=== PATIENT | female | born 1990 | race Caucasian/White ===

== ENCOUNTER 2019-12-26 21:39 | Day surgery (SDC) | payer BC ==
[2019-12-26 22:13] VITALS: BP 115/76; TEMP 98.1; BMI 32.4
[2019-12-26] MEDS ORDERED: hydrALAZINE 20 MG/ML VIAL SLOW IVP PRN (22:27)
--- NOTE | 2019-12-26 22:37 | PDOC.EVN ---
Event Note - Event Note Event Note: ADDENDUM to H&P: States had Influenza A in Sep 2019...so I suspect this is simple rhinovirus vs other similar. Rec: hydration
--- NOTE | 2019-12-26 23:29 | HP ---
TIME: 2228 LOCATION: Labor and Delivery Triage CHIEF COMPLAINT: Decreased movement This is a patient of Ana Choudhury. HISTORY OF PRESENT ILLNESS: This is a 29-year-old, G1, P0, at 39 weeks and 1 day with an EDC of January 01, who presents with some decreased movement. She denies contractions, vaginal bleeding, or leakage of fluid. She denies any fevers. She denies any complications, although she does have a prior history of a gastric sleeve surgery done in the past. REVIEW OF SYSTEMS: Complete review of systems was covered and is otherwise negative unless specified in the HPI. PAST MEDICAL HISTORY: Negative. ALLERGIES: TO VICODIN. PAST SURGERIES: Include a gastric sleeve in 2010. OBSTETRICAL HISTORY: She is a G1, P0. PHYSICAL EXAMINATION: VITAL SIGNS: Her blood pressure is 115/76, pulse is 100, and temperature is 98.1. GENERAL: She is in no acute distress. ABDOMEN: Soft and nontender. PELVIC: On perineal inspection, there is no gross evidence of bleeding or ruptured membranes. Cervical exam was deferred as she was seen last Friday and was 2 cm by Ana Choudhury, and there is no current complaint of contractions. On external monitor, the heart tones have a normal baseline with moderate variability and there are accelerations. This meets criteria for a reactive strip. Tocodynamometer is without contraction pattern. ASSESSMENT: This is a 29-year-old, G1, who is at 39 weeks and 1 day (full term), who desires expectant management for this . She has a reactive nonstress test. PLAN: 1. Reassurance given. 2. The patient told to follow up tomorrow with Ana Choudhury or the other provider in the same office for continued care. 3. No evidence of distress or of labor at this time. Job ID: [id number]
== END 2019-12-26 22:47 | disposition home or self-care (01) ==
LOC: L&D/OP 21:39
PROVIDERS: ATTEND Obstetrics & Gynecology
DX: O36.8130 Decreased fetal movements, third trimester, not applicable or unspecified (principal); Z3A.39 39 weeks gestation of pregnancy

== ENCOUNTER 2020-01-05 10:28 | Inpatient (IN) | payer BC ==
[2020-01-05 11:08] VITALS: BMI 33.1
[2020-01-05] MEDS ORDERED: Lactated Ringer's 1,000 ML IV PRN (11:32)
[2020-01-05] MEDS ORDERED: Promethazine HCl 25 MG/ML VIAL IM PRN (11:32)
[2020-01-05] MEDS ORDERED: hydrALAZINE 20 MG/ML VIAL SLOW IVP PRN ×2 (11:32→18:09)
[2020-01-05] MEDS ORDERED: Lidocaine 1% (PF) 30 ML VIAL SC PRN (11:32)
[2020-01-05] MEDS ORDERED: NS / Oxytocin 40 units/1000ml 1,000 ML IV PRN (11:32)
[2020-01-05] MEDS ORDERED: Ondansetron PF 4 MG/2 ML Vial IVP PRN ×2 (11:32→18:09)
[2020-01-05 12:37] LABS: Hemoglobin 13.1 g/dL (12.0-16.0); Mean Corpuscular HGB CONC 34.8 g/dL (32.0-36.0); Mean Corpuscular Volume 97.8 fL (78.0-98.0); Platelet Count 238 thou/uL (130-400); RBC Distribution Width 12.1 % (11.5-14.5); Red Blood Cell (RBC) Count 3.85 mill/uL (4.20-5.40); White Blood Cell (WBC) Count 10.2 thou/uL (4.8-10.8)
[2020-01-05 13:16] LABS: HBSAg Index 0.28 S/CO (0-0.99); Hep B Surf Ag Non-Reactive S/CO (NonReactive)
[2020-01-05 13:16] LABS: Syphilis Antibody Nonreactive (Nonreactive); Syphilis Antibody Index 0.03 S/CO (<1.00 Non-Reactive)
--- NOTE | 2020-01-05 14:04 | PDOC.LDHP ---
Labor and Delivery H&P Chief complaint: loss of fluid HPI: patient reports loss of clear fluid at 0200 this am. She is having very irregular contractions. The fluid is clear. The baby is moving normally. Current gestational age (weeks): 40 Due date: 01/01/19 Dating criteria: last menstrual period Grav: 1 Current complications: none Abnormal US findings: No Current medications: pre- vitamins Previous surgical history: other (Gastric sleeve) Allergies/Adverse Reactions: Allergies Allergy/AdvReac Type Severity Reaction Status Date / Time hydrocodone [From Vicodin] Allergy Severe Verified 12/26/19 22:07 Social history: none - Physical Exam Vital signs reviewed and normal: yes General: breathing through contractions Heart: RRR Lungs: nonlabored breathing Extremeties: trace edema FHT: category 1 (FHTs 135 baseline. +Accels, Moderate variabilty, no decels.) - Vaginal Exam cm dilated: 3 Effacement: 50% Station: -3 - OB Labs Blood type: O RH: negative Antibody Screen: unknown HIV: negative RPR: negative HEPSAg: negative 1 hour GCT: negative GBS: negative Urine drug screen: negative Rubella: immune - Assessment L&D Assessment: term rupture in membranes - Plan Plan: admit to L&D, labor augmentation if indicated -: Low intervention protocol. Cervical exam when indicated by change in patients contractions pattern or status.
--- NOTE | 2020-01-05 18:02 | PDOC.OPDEL ---
OB Operative/Delivery Note Delivery Dr/Surgeon: Ofelia Choudhury Pre-Delivery Diagnosis: active labor Procedure/Post Delivery Dx: spontaneous vaginal delivery Weeks gestation: 40 Anesthesia: none - Findings A Sex: female - 1 min: 9 - 5 min: 9 - Additional Findings/Plan Placenta delivered: spontaneous Repaired Obstetrical Laceration: right labial (and left labial) findings: other Compilations/Other Findings: right and left labial. Post delivery plan: routine recovery
[2020-01-05] MEDS ORDERED: Bisacodyl 10 MG SUPP PR PRN (18:09)
[2020-01-05] MEDS ORDERED: Milk Of Magnesia 30 ML UDCUP PO PRN (18:09)
[2020-01-05] MEDS ORDERED: Lanolin Ointment 7 GM TUBE TOP PRN (18:09)
[2020-01-05] MEDS ORDERED: Benzocaine-Menthol 82.5 ML CAN TOP PRN (18:09)
[2020-01-05] MEDS ORDERED: traMADol HCl 50 MG TAB PO PRN (18:09)
[2020-01-05] MEDS ORDERED: Misoprostol 200 MCG TAB VAG PRN (18:09)
[2020-01-05] MEDS ORDERED: NS / Oxytocin 40 units/1000ml 1,000 ML IV SCH (18:15)
[2020-01-05] MEDS ORDERED: Ibuprofen 800 MG TAB PO SCH (18:16)
[2020-01-06] MEDS: Ibuprofen 800 MG TAB PO SCH ×4 (02:50→21:37)
[2020-01-06] MEDS: Docusate Calcium (SURFAK) 240 MG CAP PO SCH ×3 (02:50→21:37)
[2020-01-06] MEDS: Ferrous Sulfate 325 MG TAB PO SCH ×2 (08:54→17:25)
[2020-01-06] MEDS ORDERED: Adacel (T-DAP) 0.5 ML SYRINGE IM ONE (09:00)
[2020-01-06] MEDS: Prenatal Vitamin 1 TAB PO SCH (10:46)
[2020-01-06 22:39] VITALS: BP 118/70
[2020-01-07] MEDS: Ibuprofen 800 MG TAB PO SCH (06:55)
--- NOTE | 2020-01-07 08:30 | PDOC.PP ---
Post Progress Note Post Day #: 1 Subjective: ppd day one. struggling with breast feeding. Sore but manageblae PO intake tolerated: yes Flatus: yes Ambulation: yes Vital Signs (12 hours) Temp Pulse Resp BP Pulse Ox 01/06/20 21:42 98 F 77 18 118/70 98 Weight Weight 199 lb - Physical Examination General: NAD Respiratory: non-labored breathing Abdominal: lochia (minimal), no distention Extremities: negative homans (B) Skin: no rash Neurological: no gross focal deficits Psychiatric: A&Ox3, normal affect Result Diagrams: 01/05/20 12:18 Additional Labs: Post Labs Blood Type O NEGATIVE 01/05/20 12:43 Hep Bs Antigen Non-Reactive S/CO (NonReactive) 01/05/20 12:18 - Assessment/Plan A: g1 now p1 sp P: nml exam.
[2020-01-07 08:36] VITALS: TEMP 97.6
[2020-01-07] MEDS: Prenatal Vitamin 1 TAB PO SCH (08:40)
[2020-01-07] MEDS: Docusate Calcium (SURFAK) 240 MG CAP PO SCH (08:41)
[2020-01-07] MEDS: Ferrous Sulfate 325 MG TAB PO SCH (08:42)
== END 2020-01-07 13:35 | disposition home or self-care (01) | DRG 807 ==
LOC: L&D/OP 10:28 → L&D-LIB 11:32 → 3SW 20:50
PROVIDERS: ADMIT Obstetrics & Gynecology; ATTEND Obstetrics & Gynecology
PROC: 10E0XZZ Delivery of Products of Conception, External Approach (ICD-10-PCS; principal; 2020-01-05)
PROC: 0HQ9XZZ Repair Perineum Skin, External Approach (ICD-10-PCS; 2020-01-05)
DX: O70.0 First degree perineal laceration during delivery (principal); Z37.0 Single live birth; Z3A.40 40 weeks gestation of pregnancy
CPT/HCPCS: 36415; 85027; 85461; 86780; 86850; 86870; 86900; 86901; 87340; 90384; 96372